=== PATIENT | male | born 1965 | race Caucasian/White ===

== ENCOUNTER 2019-09-22 15:47 | Emergency (ER) | payer OTHER ==
[2019-09-22] MEDS ORDERED: Metoprolol Tartrate 5 MG/5 ML VIAL ONE ×3 (16:12→17:12)
[2019-09-22] MEDS ORDERED: Nitroglycerin 0.4 MG TAB 1 EACH ONE (16:12)
[2019-09-22] MEDS ORDERED: Aspirin Chewable 81 MG TAB ONE (16:12)
[2019-09-22 16:53] LABS: ALT (SGPT) 34 U/L (8-55); AST (SGOT) 21 U/L (5-34); Albumin 4.4 g/dL (3.5-5.0); Alkaline Phosphatase 87 U/L (40-110); Anion Gap 14 mmol/L (10-20); BUN (Urea Nitrogen) 14 mg/dL (8.4-25.7); Bilirubin, Total 0.4 mg/dL (0.2-1.2); Calc. Creatinine Clearance 0 mL/min (70-130); Calcium 9.6 mg/dL (7.8-10.44); Carbon Dioxide 30 mmol/L (22-29); Chloride 95 mmol/L (98-107); Estimated GFR-MDRD 73; Globulin 3.2 g/dL (2.4-3.5); Glucose 133 mg/dL (70-105); Potassium 3.1 mmol/L (3.5-5.1); Protein, Total 7.6 g/dL (6.0-8.3); Sodium 136 mmol/L (136-145)
[2019-09-22 16:57] LABS: Eosinophils 2 % (0-10); Lymphocytes 34 % (21-51); MDiff Complete? YES; Mean Corpuscular HGB CONC 32.7 g/dL (32.0-36.0); Mean Corpuscular Hemoglobin 29.3 pg (27.0-31.0); Mean Corpuscular Volume 89.7 fL (78.0-98.0); Mean Platelet Volume 7.7 fL (7.4-10.4); Monocytes 11 % (0-10); Neutrophil 53 % (42-75); Platelet Count 294 thou/uL (130-400); RBC Distribution Width 11.8 % (11.5-14.5); Red Blood Cell (RBC) Count 5.45 mill/uL (4.70-6.10); White Blood Cell (WBC) Count 9.5 thou/uL (4.8-10.8)
[2019-09-22] MEDS ORDERED: Potassium Chloride 20 MEQ TAB ONE (17:12)
--- NOTE | 2019-09-22 17:18 | RAD ---
PORTABLE CHEST 09/22/19 An AP portable film at 1646 is compared with an 03/28/08 study from [facility]. Mild cardiomegaly is the same as before. There is no definite congestion or edema. The lungs are neymar r. There might be some minor atelectasis over the right hemidiaphragm. The trachea is midline. IMPRESSION: Mild cardiomegaly with little change since 2007. POS: HOME
[2019-09-22 18:59] LABS: Bilirubin Negative (Negative); Blood, Urine Negative (Negative); Clarity Clear (Clear); Glucose, Urine (Dipstick) Negative (Negative); Leukocyte Negative (Negative); Nitrite Negative (Negative); Protein, Urine (Dipstick) Negative (Neg-Trace)
[2019-09-22 19:15] LABS: Troponin I 0.014 ng/mL (< 0.028)
[2019-09-22 19:17] LABS: Amphetamine Not Detected (NotDetected); Barbiturates Screen Not Detected (NotDetected); Benzodiazepine Screen Not Detected (NotDetected); Cocaine Metabolite Screen Not Detected (NotDetected); Medtox Control Line Valid? VALID (VALID); Methadone Not Detected (NotDetected); Methamphetamine Not Detected (NotDetected); Opiate Screen Not Detected (NotDetected); Oxycodone Screen Not Detected (NotDetected); Phencyclidine (PCP) Not Detected (NotDetected); THC/Cannabinoid Screen Not Detected (NotDetected); Tricyclic Screen Not Detected (NotDetected)
== END 2019-09-22 21:05 | disposition short-term general hospital (02) ==
LOC: BURERS 15:47
DX: R07.9 Chest pain, unspecified (principal); I10 Essential (primary) hypertension; E87.6 Hypokalemia; E03.9 Hypothyroidism, unspecified; E78.2 Mixed hyperlipidemia
CPT/HCPCS: 71045; 80053; 80306; 81003; 84484; 85025; 93005; 94760; 96374; 96376